=== PATIENT | female | born 2005 | race Caucasian/White ===

== ENCOUNTER 2024-02-25 03:47 | Inpatient (IN) | payer MEDICAID, SELFPAY ==
[2024-02-25] VITALS (62 sets, daily range): BP systolic 102–153; BP diastolic 55–101; PULSE 64–109; RESP 14–18; TEMP 36.4–37.2; O2SAT 92–100; BMI 27.3
[2024-02-25 03:42] LABS: ROM Internal Control Test YES-OK TO RESULT pt. (Internal QC); ROM Patient Test POSITIVE (Negative); Record Kit Lot#, ROM+ K1972
[2024-02-25] MEDS: Lactated Ringers 1,000 ML 50 ML IV (04:30)
[2024-02-25] MEDS: miSOPROStol 25 MCG TABLET PO ×2 (04:33→08:26)
[2024-02-25 04:39] LABS: Absolute Lymphocyte Count 2.24 X10^3/uL (0.83-4.51); Basophil# 0.02 X10^3/uL; Basophil% 0.3 % (0-1); Eosinophil# 0.06 X10^3/uL; Eosinophils% 0.8 % (0-5); Hematocrit 37.8 % (37-47); Hemoglobin 11.8 g/dL (12.0-15.0); Lymphocyte # 2.24 X10^3/ul (0.83-4.51); Lymphocyte % 28.1 % (19-41); Mean Corp Hgb Conc 31.2 g/dL (32-36); Mean Corpuscular Hgb 26.5 pg (27.0-32.0); Mean Corpuscular Volume 84.8 fL (81-99); Monocyte% 7.5 % (0-10); NRBC Flagged by Analyzer 0 % (0-5); Neutrophil # 5.04 X10^3/uL (2.7-7.7); Platelet Count 193 K/mm3 (150-450); RBC Distribution Width CV 19.9 % (11.6-14.6); RBC Distribution Width SD 59.7 fl (35.1-43.9); Red Blood Count 4.46 M/mm3 (4.2-5.4)
[2024-02-25 05:05] LABS: AST(SGOT) 18 U/L (15-37); Alanine Aminotransfer ALT/SGPT 12 U/L (13-56); EST Glomerular Filtration Rate 97 mL/min (>60); Est Glom Filt Rate - Afr Amer 117 mL/min (>60); Protein, Urine (Random) 11.1 mg/dL (<11.9); Protein:Creat Ratio 219 mg/g CRE (0-200); Uric Acid 4.2 mg/dL (2.6-6.0)
[2024-02-25 05:14] LABS: Syphilis Antibodies Non-reactive
[2024-02-25] MEDS: Lactated Ringers 1,000 ML 200 ML IV ×2 (10:24→14:46)
[2024-02-25] MEDS: fentaNYL-bupivacaine (epidural) 100 ML BAG EPIDURAL ×2 (10:37→14:57)
[2024-02-25] MEDS: 0.9% Normal Saline Single 100 ML IV.SOLN. INTRA-UTER (13:00)
[2024-02-25] MEDS: Oxytocin 15 Units/NS 250ml 15 UNITS/250 ML IV.SOLN 2 UNITS IV (13:45)
[2024-02-25] MEDS: Oxytocin 15 Units/NS 250ml 15 UNITS/250 ML IV.SOLN 83 UNITS IV (19:20)
[2024-02-25] MEDS: 0.9% Saline Lock 10 ML Syringe IV (22:45)
[2024-02-26] VITALS (13 sets, daily range): BP systolic 119–144; BP diastolic 69–96; PULSE 67–89; RESP 14–16; TEMP 36.4–37.3; O2SAT 96–97
[2024-02-26] MEDS: Rho(D) Immune Globulin 300 MCG (1500 Unit) Syringe IV (04:57)
[2024-02-26] MEDS: Ibuprofen 600 MG Tablet PO (08:34)
[2024-02-26] MEDS: Acetaminophen 500 MG Tablet 1000 MG PO (12:42)
== END 2024-02-26 22:15 | disposition home or self-care (01) | DRG 560 ==
LOC: WP 03:58
PROVIDERS: Advanced Practice Midwife; Admitting Provider Obstetrics & Gynecology; Referring Provider Obstetrics & Gynecology; Visit Provider Obstetrics & Gynecology
DX: O48.0 Post-term pregnancy (principal); Z37.0 Single live birth; O99.02 Anemia complicating childbirth; Z79.82 Long term (current) use of aspirin; Z3A.40 40 weeks gestation of pregnancy
CPT/HCPCS: 59025; 59050; 82565; 82570; 84112; 84156; 84450; 84460; 84550; 85025; 85461; 86780; 86850; 86900; 86901; 90384; 99221; J7120; A4216; G0378; J2790; J2791

== ENCOUNTER 2025-01-19 18:57 | Emergency (ER) | payer MEDICAID, SELFPAY ==
[2025-01-19 18:58] VITALS: BP 115/70; PULSE 126; RESP 18; TEMP 37.5; O2SAT 99; BMI 23.1
[2025-01-19 20:57] VITALS: BP 115/73; PULSE 115; RESP 16; O2SAT 98
[2025-01-19 22:00] VITALS: BP 134/76; PULSE 99; RESP 16; O2SAT 100
[2025-01-19 23:11] VITALS: BP 134/76; PULSE 99; RESP 16; TEMP 37.2; O2SAT 100
== END 2025-01-19 23:13 | disposition home or self-care (01) ==
PROVIDERS: Emergency Provider Surgery; Visit Provider Surgery
DX: B34.9 Viral infection, unspecified (principal)
CPT/HCPCS: 71046; 87631; 99283